=== PATIENT | male | born 1945 | race Caucasian/White ===

== ENCOUNTER → 2023-04-18 | Outpatient (CLI) | payer OTHER | END | disposition home or self-care (01) | LOC: RESCLI 13:46 | PROVIDERS: ATTEND Internal Medicine | DX: I48.91 Unspecified atrial fibrillation (principal); E11.9 Type 2 diabetes mellitus without complications; I10 Essential (primary) hypertension; E78.00 Pure hypercholesterolemia, unspecified; J45.909 Unspecified asthma, uncomplicated; F10.90 Alcohol use, unspecified, uncomplicated; E78.5 Hyperlipidemia, unspecified; G62.9 Polyneuropathy, unspecified; F51.04 Psychophysiologic insomnia; E53.8 Deficiency of other specified B group vitamins; E55.9 Vitamin D deficiency, unspecified; Z87.891 Personal history of nicotine dependence; Z82.49 Family history of ischemic heart disease and other diseases of the circulatory system; Z79.899 Other long term (current) drug therapy; Z88.8 Allergy status to other drugs, medicaments and biological substances ==